=== PATIENT | male | born 2000 | race Two or more races ===

== ENCOUNTER 2020-09-26 19:51 | Emergency (ER) | payer OTHER, MEDICAID, SELFPAY ==
[2020-09-26 19:54] VITALS: BP 150/81; PULSE 130; RESP 16; TEMP 37.7; O2SAT 100; BMI 25.2
[2020-09-26] MEDS: Ibuprofen 800 MG TABLET PO (20:42)
--- NOTE | 2020-09-26 20:45 | PC.NURSE ---
Patient left side of lip swollen. Patient attempted to pop a zit and this morning woke up with a swollen lip. Patient medicated with Motrin 900 mg
--- NOTE | 2020-09-26 20:49 | ED.GENADULT ---
HPI - General Adult General Chief complaint: General Medical Stated complaint: Lip swelling Time Seen by Provider: 09/26/20 20:36 Source: patient Mode of arrival: ambulatory Limitations: no limitations History of Present Illness HPI narrative: Patient presents to the ED for slight swelling of left upper lip after popping a pimple above his left lip. Patient denies any shortness of breath, chest pain, drooling, sensation of throat closing, fever, chills, or rash on the body. Related Data Previous Rx's Medication Instructions Recorded cephalexin 500 mg PO QID #27 cap 09/26/20 doxycycline hyclate 100 mg PO DAILY #13 cap 09/26/20 naproxen 500 mg PO BID PRN #20 tab 09/26/20 Allergies Allergy/AdvReac Type Severity Reaction Status Date / Time No Known Allergies Allergy Verified 09/26/20 19:53 Review of Systems Constitutional: Constitutional: Reports as per HPI and Reports no additional constitutional complaints Eyes: Eyes: Reports as per HPI and Reports no additional eye complaints ENT: Reports system reviewed and no additional complaints, except as documented and Reports as per HPI Comments: Slight swelling of left upper lip. Popped bahai Cardiovascular: Cardiovascular: Reports as per HPI and Reports no additional cardiovascular complaints Respiratory: Respiratory: Reports as per HPI and Reports no additional respiratory complaints Gastrointestinal: Gastrointestinal: Reports as per HPI and Reports no additional gastrointestinal complaints Musculoskeletal: Musculoskeletal: Reports no additional musculoskeletal complaints and Reports as per HPI Neurologic: Reports system reviewed and no additional complaints, except as documented and Reports as per HPI Psychiatric: Psychiatric: Reports no additional psychiatric complaints and Reports as per HPI [facility] Social History Social History Smoking Status: Current some day smoker Use of substances other than those prescribed or required for medical reasons: No Advance Directives: No Advance Directives Information Provided: No Physical Exam Vital Signs: Vital Signs: Last Vital Signs Temp 99.3 F 09/26/20 20:56 Pulse 106 H 09/26/20 20:56 Resp 14 09/26/20 20:56 BP 137/74 09/26/20 20:56 Pulse Ox 97 09/26/20 20:56 Body Mass Index 25.2 Const: General: cooperative, healthy appearing, comfortable, no acute distress, well developed, alert, awake and Physically active Orientation/consciousness: patient oriented x3 HENMT: Other: Slight swelling of left upper lip. Oral cavity examined and negative for any abscess of gum, swelling of uvula, swelling of tongue, drooling, or infected tooth. uvula is midline. Pimple above left upper lip positive for surrounding erythema but negative any flocculence or drainage. Patient is speaking in full sentences and not using accessory muscles. Patient is not drooling. Patient's voice is normal Eyes: General: appearance normal, both eyes and all related structures Neck: Other: Negative for any some mandibular swelling or neck swelling Neck: Yes normal visual inspection, Yes full ROM, Yes no lymphadenopathy, Yes no meningeal signs, Yes trachea midline, Yes supple, No anterior neck swelling and No tender Chest: Chest palpation & inspection: normal inspection of the chest and normal palpation of entire chest wall Resp: Effort & Inspection: normal respiratory effort and able to speak in complete sentences Auscultation: clear to auscultation bilaterally Cardio: Jugular venous distension: no JVD Heart sounds: S1 normal heart sound present and S2 normal heart sound present GI: Inspection: Yes normal to inspection Palpation (GI): Soft to palpation, not firm, nontender, no guarding and not rigid : General: No CVA tenderness and Yes no CVA tenderness Back/Spine/Pelvis: Back: no CVA tenderness and No CVA tenderness Skin: Other: Cellulitis around pimple. Body negative for any uticarial rash. General skin exam: no rashes or lesions noted Neuro: General: patient oriented x3, no meningeal signs and CN's II-XI intact bilaterally Cranial nerves: Yes CN's II-XII intact bilaterally Extrem: General: Yes normal to inspection and Yes full ROM Psych: Appearance: grossly normal, well kempt and not disheveled Course Course Course Narrative: Patient is not toxic appearing. Patient does not need any labs or imaging. Patient presently not in any respiratory distress. Negative for any neck swelling/submandibular swelling to indicate possibility of retropharyngeal abscess. Patient is not having an allergic reaction. Patient denies any itchiness, shortness of breath, or uticaria rash on body. Patient does not need septic workup. Patient is not septic. Reevaluation(s) Reevaluation #1: Diagnosis is cellulitis. Patient will discharge with antibiotics and NSAIDs. Patient educated on warm compress on the area. Time: 21:24 Medical Decision Making [facility] Narrative Medical decision making narrative: Cellulitis Discharge Plan Discharge Clinical Impression: Cellulitis Patient Disposition: Home, Self-Care Instructions: Cellulitis (ED) Additional Instructions: Return to the ED immediately for increased swelling of the lips, drooling, change in voice, shortness of breath, chest pain, neck swelling, drainage, rash on body, or any other concerning symptoms. Recommend warm compress on left upper lip and area of pimple. Please follow-up with your PCP Prescriptions: New cephalexin 500 mg capsule 500 mg PO QID Qty: 27 RF: 0 doxycycline hyclate 100 mg capsule 100 mg PO DAILY Qty: 13 RF: 0 naproxen 500 mg tablet 500 mg PO BID PRN (Reason: pain) Qty: 20 RF: 0 Stand Alone Forms: Work/School Release Interventions: ED Discharge Assessment Last Done: 09/26/20 21:37 Discharge Date/Time: 09/26/20 21:53 Print Language: Ukrainian
[2020-09-26 20:56] VITALS: BP 137/74; PULSE 106; RESP 14; TEMP 37.4; O2SAT 97
[2020-09-26] MEDS: cephALEXin 500 MG CAPSULE PO (21:27)
--- NOTE | 2020-09-26 21:28 | PC.NURSE ---
medicated per mar. pt a&O, no sign of distress.
== END 2020-09-26 21:53 | disposition home or self-care (01) ==
PROVIDERS: Emergency Provider Emergency Medicine
DX: K13.0 Diseases of lips (principal); F17.200 Nicotine dependence, unspecified, uncomplicated
CPT/HCPCS: 99284